=== PATIENT | female | born 1980 | race American Indian/Alaskan Native ===

== ENCOUNTER 2018-03-20 09:45 | Inpatient (IN) | payer OTHER ==
[~2018-03-20] VITALS: Ht 167.6 cm; Wt 64.9 kg
[~2018-03-20 09:45] MED LIST: CELEBREX100 MG PO; SKELAXIN800 MG PO
== END 2018-03-30 10:22 | disposition home or self-care (01) | DRG 743 ==
LOC: OB/GYN 03-28 06:19 → O/R 03-28 06:19 → SURH 03-28 09:43 → OB/GYN 03-28 10:12 → SURH 03-28 12:45 → OB/GYN 03-28 15:29
PROVIDERS: Obstetrics & Gynecology
PROC: 0UB10ZZ Excision of Left Ovary, Open Approach (ICD-10-PCS; 2018-03-28)
PROC: 0UT90ZL Resection of Uterus, Supracervical, Open Approach (ICD-10-PCS; principal; 2018-03-28 12:45)
DX: D27.1 Benign neoplasm of left ovary (principal)